=== PATIENT | male | born 1955 | race Hispanic/Latino ===

== ENCOUNTER → 2019-07-16 | Day surgery (SDC) | payer MEDICARE ==
[2019-07-10 13:23] LABS: BASOPHILS % 0.4 % (0.0-1.0); EOSINOPHILS % 0.1 % (0.0-6.0); HEMATOCRIT 44.3 % (38.2-49.6); HEMOGLOBIN 14.8 g/dL (14.0-18.0); LYMPHOCYTES # (AUTO) 1.1 (1.0-3.2); MEAN CORPUSCULAR HEMOGLOBIN 33.2 pg (28-32); MEAN CORPUSCULAR HGB CONC 33.4 g/dL (31-35); MEAN CORPUSCULAR VOLUME 99.3 fL (81-99); MONOCYTES # (AUTO) 0.9 (0.2-0.8); MONOCYTES % 11.3 % (4.4-11.3); NEUTROPHILS # (AUTO) 5.6 (2.1-6.9); NEUTROPHILS % 73.9 % (38.7-80.0); PLATELET COUNT 178 x10e3/uL (140-360); RED BLOOD COUNT 4.46 x10e6/uL (4.3-5.7); RED CELL DISTRIBUTION WIDTH 13.2 % (11.7-14.4)
[~2019-07-16] MED LIST: ATORVASTATIN CA20 MG PO; CARVEDILOL3.125 MG PO; DIOVAN80 MG PO; ELIQUIS5 MG PO; FENTANYL CITRATE/PF 100MCG/2 ML INJ ONE; FUROSEMIDE40 MG PO; LEVOTHYROXINE50 MCG PO; MIDAZOLAM HCL 2 MG/2 ML VIAL ONE; POTASSIUM CHLO20 ME1 PO; PROPOFOL IV EMULSION 10 MG/ML 50 ML VIAL ONE; SYMBICORT 16010.2 GM INH; TYLENOL # 31 EA PO; ZOLPIDEM TARTRA10 MG PO
--- OUTSIDE RECORDS SUMMARY | 2019-07-16 06:54 | XMS REPORT ---
Author Organization Unknown Address [address] [place] [address] Phone [phone] Care Team Providers Care Pv Design Engineer Name Role Phone CATIA HUTCHINS MD 82 [phone] ROBIN "NATI" CHRISTIANO TIDWELL 3 [phone] Allergies Code Code System Name Reaction Severity Status Onset NKDA Medications Name Status Start Date Stop Date acetaminophen 300 mg-codeine 30 mg tablet tanmay 1 o 2 tabletas por via oral cada 8 horas por annmarie necesaria dolor Active Not available Advair Diskus 500 mcg-50 mcg/dose powder for inhalation Completed 12/16/2016 albuterol sulfate 2.5 mg/3 mL (0.083 %) solution for nebulization Completed 10/09/2017 atorvastatin 40 mg tablet Take 1 tablet every day by oral route for 90 days. Completed 11/02/2017 bupropion HCl XL 150 mg 24 hr tablet, extended release Completed 10/26/2017 carvedilol 12.5 mg tablet Active Not available Depo-Medrol 80 mg/mL suspension for injection 1 ml injected deep IM, once, as a single dose Completed 10/09/2017 diclofenac 3 % topical gel aplicar 2 cm hacia area afectada y frotar, 4 veces cada ernesto Active Not available furosemide 20 mg tablet TAKE ONE TABLET BY MOUTH ONCE DAILY DIRECTED FOR 90 DAYS Active Not available furosemide 40 mg tablet tanmay 1 o 2 tabletas por via oral dos veces cada ernesto Active Not available hydrocodone 10 mg-acetaminophen 325 mg tablet Completed 11/02/2017 hydrocodone 7.5 mg-acetaminophen 325 mg tablet Completed 11/02/2017 levothyroxine 50 mcg tablet Active Not available levothyroxine 75 mcg tablet Completed 05/02/2017 methylprednisolone 4 mg tablets in a dose pack Completed 10/09/2017 minocycline 100 mg capsule Completed 08/25/2017 montelukast 10 mg tablet Take 1 tablet every day by oral route as directed for 90 days. Completed 10/26/2017 omeprazole 40 mg capsule,delayed release Take 1 capsule every day by oral route as directed for 90 days. Active Not available potassium chloride ER 20 mEq tablet,extended release tanmay 1 tableta por via oral lukasz cyndie blackman ernesto Active Not available Savaysa 60 mg tablet Take 1 tablet every day by oral route as directed for 90 days. Completed 10/26/2017 simvastatin 40 mg tablet Completed 08/25/2017 Symbicort 160 mcg-4.5 mcg/actuation HFA aerosol inhaler Active Not available tizanidine 4 mg tablet Completed 09/14/2017 tramadol 50 mg tablet Completed 09/14/2017 valacyclovir 1 gram tablet Completed 10/26/2017 valsartan 40 mg tablet Active Not available Problems Name Status Onset Date Source Hypothyroidism Active 09/14/2016 Hypercholesterolemia Active 09/14/2016 Hypertensive Disorder Unknown 09/14/2016 Hypertensive Heart Failure Active 09/14/2016 Coronary Arteriosclerosis in [place] Artery Active 09/14/2016 Chronic Atrial Fibrillation Active 09/14/2016 Chronic Systolic Heart Failure Active 09/14/2016 Chronic Obstructive Lung Disease Active 09/14/2016 Gastroesophageal Reflux Disease Active 09/14/2016 Cardiac Pacemaker in Situ Active 09/14/2016 Generalized Anxiety Disorder Active 05/02/2017 Edema of Lower Extremity Active 11/02/2017 Compression Fracture of Lumbar Spine Active 11/02/2017 Procedures Date Name Performed by 07/14/2017 Pacemaker Notes: replacement sx Information not available 08/14/2001 Pacemaker Information not available 09/14/2016 Electrocardiogram [facility] [address] [place] [address] (Work Place) 10/26/2017 XR, Lumbosacral Spine, 2 or 3 View [facility] [address] [place] [address] (Work Place) Lab Results Date Name Specimen Result Interpretation Description Value Range Status Address 10/26/2017 BNP (B-type Natriuretic Peptide), Serum or Plasma Normal B Type Natriuretic Peptide (BNP) 95 pg/mL <100 pg/mL Final [facility]: [address] 10/26/2017 Lipid Panel, Serum Normal Cholesterol, Total 181 mg/dL <200 mg/dL Final [facility]: [address] [place] [address] Normal HDL Cholesterol 71 mg/dL >40 mg/dL Final [facility]: [address] Normal Triglycerides 82 mg/dL <150 mg/dL Final [facility]: [address] Normal LDL-cholesterol 93 mg/dL (calc) Final [facility]: [address] Normal Chol/hdlc Ratio 2.5 (calc) <5.0 (calc) Final [facility]: [address] Normal Non HDL Cholesterol 110 mg/dL (calc) <130 mg/dL (calc) Final [facility]: [address] 10/26/2017 CMP, Serum or Plasma High Glucose 101 mg/dL 65-99 mg/dL Final [facility]: [address] Normal Urea Nitrogen (BUN) 21 mg/dL 7-25 mg/dL Final [facility]: [address] Normal Creatinine 1.05 mg/dL 0.70-1.25 mg/dL Final [facility]: [address] Normal eGFR Non-afr. Citizen Of [place] 75 mL/min/1.73m2 > or=60 mL/min/1.73m2 Final [facility]: [address] Normal eGFR 87 mL/min/1.73m2 > or=60 mL/min/1.73m2 Final [facility]: [address] BUN/creatinine Ratio not applicable (calc) 6-22 (calc) Final [facility]: [address] Normal Sodium 144 mmol/L 135-146 mmol/L Final [facility]: [address] Normal Potassium 4.3 mmol/L 3.5-5.3 mmol/L Final [facility]: [address] Normal Chloride 101 mmol/L 98-110 mmol/L Final [facility]: [address] High Carbon Dioxide 37 mmol/L 20-31 mmol/L Final [facility]: [address] Normal Calcium 9.3 mg/dL 8.6-10.3 mg/dL Final [facility]: [address] [place] Normal Protein, Total 6.4 g/dL 6.1-8.1 g/dL Final [facility]: [address] [place] Normal Albumin 3.7 g/dL 3.6-5.1 g/dL Final [facility]: [address] [place] Normal Globulin 2.7 g/dL (calc) 1.9-3.7 g/dL (calc) Final [facility]: [address] [place] Normal Albumin/globulin Ratio 1.4 (calc) 1.0-2.5 (calc) Final [facility]: [address] [place] Normal Bilirubin, Total 1.0 mg/dL 0.2-1.2 mg/dL Final [facility]: [address] [place] High Alkaline Phosphatase 130 U/L 40-115 U/L Final [facility]: [address] [place] Normal Ast 16 U/L 10-35 U/L Final [facility] [address] [facility] Alt 19 U/L 9-46 U/L Final [facility]: [address] [place] 10/26/2017 Tech Slide Review Normal White Blood Cell Count 10.7 thousand/uL 3.8-10.8 thousand/uL Final [facility] [address] [facility] Red Blood Cell Count 4.34 million/uL 4.20-5.80 million/uL Final [facility] [address] [facility] Hemoglobin 14.6 g/dL 13.2-17.1 g/dL Final [facility]: [address] [place] Normal Hematocrit 43.7 % 38.5-50.0 % Final [facility]: [address] [place] High Mcv 100.7 fL 80.0-100.0 fL Final [facility]: [address] [place] High Mch 33.6 pg 27.0-33.0 pg Final [facility] [address] [facility] [facility] Mchc 33.4 g/dL 32.0-36.0 g/dL Final [facility]: [address] [place] Normal Rdw 12.6 % 11.0-15.0 % Final [facility]: [address] [place] Normal Platelet Count 202 thousand/uL 140-400 thousand/uL Final [facility]: [address] [facility] [place] Normal Mpv 11.6 fL 7.5-12.5 fL Final [facility]: [address] [place] High Absolute Neutrophils 8988 cells/uL 7770-7742 cells/uL Final [facility]: [address] [facility] [place] Normal Absolute Lymphocytes 1284 cells/uL 850-3900 cells/uL Final [facility]: [address] [place] [address] Normal Absolute Monocytes 428 cells/uL 200-950 cells/uL Final [facility]: [address] [place] [address] Low Absolute Eosinophils 0 cells/uL 15-500 cells/uL Final [facility]: [address] [place] [address] Normal Absolute Basophils 0 cells/uL 0-200 cells/uL Final [facility]: [address] Normal Neutrophils 84 % Final [facility]: [address] [facility] [place] Normal Lymphocytes 12 % Final [facility]: [address] Normal Monocytes 4 % Final [facility]: [address] Normal Eosinophils 0 % Final [facility]: [address] Normal Basophils 0 % Final [facility]: [address] Comment(s) Final [facility]: [address] 05/02/2017 BNP (B-type Natriuretic Peptide), Serum or Plasma Normal B Type Natriuretic Peptide (BNP) 60 pg/mL <100 pg/mL Final [facility]: [address] 05/02/2017 TSH, Serum or Plasma Normal Tsh 3.41 mIU/L 0.40-4.50 mIU/L Final [facility]: [address] 05/02/2017 T4, Total, Serum Normal T4 (Thyroxine), Total 7.9 mcg/dL 4.5-12.0 mcg/dL Final [facility] [address] [facility] [facility] 05/02/2017 CMP, Serum or Plasma Normal Glucose 81 mg/dL 65-99 mg/dL Final [facility]: [address] Normal Urea Nitrogen (BUN) 18 mg/dL 7-25 mg/dL Final [facility]: [address] Normal Creatinine 1.15 mg/dL 0.70-1.25 mg/dL Final [facility]: [address] Normal eGFR Non-afr. Citizen [place] 67 mL/min/1.73m2 > or=60 mL/min/1.73m2 Final [facility]: [address] Normal eGFR 78 mL/min/1.73m2 > or=60 mL/min/1.73m2 Final [facility]: [address] BUN/creatinine Ratio not applicable (calc) 6-22 (calc) Final [facility]: [address] Normal Sodium 142 mmol/L 135-146 mmol/L Final [facility]: [address] Normal Potassium 3.8 mmol/L 3.5-5.3 mmol/L Final [facility]: [address] Normal Chloride 104 mmol/L 98-110 mmol/L Final [facility]: [address] Normal Carbon Dioxide 28 mmol/L 20-31 mmol/L Final [facility]: [address] Normal Calcium 8.8 mg/dL 8.6-10.3 mg/dL Final [facility]: [address] Normal Protein, Total 6.2 g/dL 6.1-8.1 g/dL Final [facility]: [address] Normal Albumin 3.8 g/dL 3.6-5.1 g/dL Final [facility]: [address] Normal Globulin 2.4 g/dL (calc) 1.9-3.7 g/dL (calc) Final [facility]: [address] [place] Normal Albumin/globulin Ratio 1.6 (calc) 1.0-2.5 (calc) Final [facility]: [address] High Bilirubin, Total 1.3 mg/dL 0.2-1.2 mg/dL Final [facility]: [address] [place] Normal Alkaline Phosphatase 73 U/L 40-115 U/L Final [facility]: [address] [place] Normal Ast 20 U/L 10-35 U/L Final [facility]: [address] [place] Normal Alt 31 U/L 9-46 U/L Final [facility]: [address] Butler 05/02/2017 Tech Slide Review Normal White Blood Cell Count 8.6 thousand/uL 3.8-10.8 thousand/uL Final [facility]: [address] [place] Normal Red Blood Cell Count 4.99 million/uL 4.20-5.80 million/uL Final [facility]: [address] [place] Normal Hemoglobin 16.5 g/dL 13.2-17.1 g/dL Final [facility]: [address] [place] Normal Hematocrit 49.0 % 38.5-50.0 % Final [facility]: [address] [place] Normal Mcv 98.2 fL 80.0-100.0 fL Final [facility]: [address] High Mch 33.1 pg 27.0-33.0 pg Final [facility]: [address] [place] Normal Mchc 33.7 g/dL 32.0-36.0 g/dL Final [facility]: [address] [place] Normal Rdw 12.1 % 11.0-15.0 % Final [facility]: [address] [place] Normal Platelet Count 174 thousand/uL 140-400 thousand/uL Final [facility]: [address] [place] Normal Mpv 11.7 fL 7.5-12.5 fL Final [facility]: [address], [place] Normal Absolute Neutrophils 4902 cells/uL 6708-1388 cells/uL Final [facility]: [address] [place] Normal Absolute Lymphocytes 2150 cells/uL 850-3900 cells/uL Final [facility]: [address] [place] High Absolute Monocytes 1204 cells/uL 200-950 cells/uL Final [facility]: [address] [place] Normal Absolute Eosinophils 344 cells/uL 15-500 cells/uL Final [facility]: [address] [place] Normal Absolute Basophils 0 cells/uL 0-200 cells/uL Final [facility]: [address] [place] Normal Neutrophils 57 % Final [facility]: [address] [place] Normal Lymphocytes 25 % Final [facility]: [address] [place] Normal Monocytes 14 % Final [facility]: [address] [facility] [place] Normal Eosinophils 4 % Final [facility]: [address] [facility] [place] Normal Basophils 0 % Final [facility]: [address] Comment(s) <enter> Final [facility] [address] [facility] 05/[facility]/2017 Lipid Panel, Serum High Cholesterol, Total 216 mg/dL <200 mg/dL Final [facility]: [address] [place] [address] Normal HDL Cholesterol 68 mg/dL >40 mg/dL Final [facility]: [address] [place] [address] Normal Triglycerides 140 mg/dL <150 mg/dL Final [facility]: [address] [place] [address] High LDL-cholesterol 123 mg/dL (calc) Final [facility]: [address] Normal Chol/hdlc Ratio 3.2 (calc) <5.0 (calc) Final [facility]: [address] [place] [address] High Non HDL Cholesterol 148 mg/dL (calc) <130 mg/dL (calc) Final [facility] [address] [facility] 09/[facility]2016 Lipid Panel, Serum High Cholesterol, Total 215 mg/dL 125- 200 mg/dL Final [facility]: [address] [facility], [place] Normal HDL Cholesterol 72 mg/dL > or=40 mg/dL Final [facility]: [address], [place] Normal Triglycerides 105 mg/dL <150 mg/dL Final [facility]: [address], [place] Normal LDL-cholesterol 122 mg/dL (calc) <130 mg/dL (calc) Final [facility]: [address], [place] Normal Chol/hdlc Ratio 3.0 (calc) < or=5.0 (calc) Final [facility]: [address] [facility], [place] Normal Non HDL Cholesterol 143 mg/dL (calc) Final [facility]: [address] [facility], [place] 09/14/2016 CMP, Serum or Plasma Normal Glucose 90 mg/dL 65-99 mg/dL Final [facility]: [address] [facility], [place] Normal Urea Nitrogen (BUN) 17 mg/dL 7-25 mg/dL Final [facility]: [address] [facility], [place] Normal Creatinine 1.07 mg/dL 0.70-1.25 mg/dL Final [facility]: [address] [facility], [place] Normal eGFR Non-afr. Citizen [place] 73 mL/min/1.73m2 > or=60 mL/min/1.73m2 Final [facility]: [address] [facility], [place] Normal eGFR 85 mL/min/1.73m2 > or=60 mL/min/1.73m2 Final [facility]: [address] [facility], [place] BUN/creatinine Ratio not applicable (calc) 6-22 (calc) Final [facility]: [address] [facility], [place] Normal Sodium 143 mmol/L 135-146 mmol/L Final [facility]: [address] [facility], [place] Normal Potassium 4.0 mmol/L 3.5-5.3 mmol/L Final [facility]: [address] [facility], [place] Normal Chloride 105 mmol/L 98-110 mmol/L Final [facility]: [address] [facility], [place] Normal Carbon Dioxide 30 mmol/L 20-31 mmol/L Final [facility]: [address], [place] Normal Calcium 9.1 mg/dL 8.6-10.3 mg/dL Final [facility]: [address], [place] Normal Protein, Total 6.3 g/dL 6.1-8.1 g/dL Final [facility]: [address], [place] Normal Albumin 4.0 g/dL 3.6-5.1 g/dL Final [facility]: [address], [place] Normal Globulin 2.3 g/dL (calc) 1.9-3.7 g/dL (calc) Final [facility]: [address], [place] Normal Albumin/globulin Ratio 1.7 (calc) 1.0-2.5 (calc) Final [facility]: [address], [place] High Bilirubin, Total 1.5 mg/dL 0.2-1.2 mg/dL Final [facility]: [address], [place] Normal Alkaline Phosphatase 67 U/L 40-115 U/L Final [facility]: [address], [place] Normal Ast 17 U/L 10-35 U/L Final [facility]: [address], [place] Normal Alt 30 U/L 9-46 U/L [facility]: [address], [place] 09/14/2016 CBC W/ Auto Diff Normal White Blood Cell Count 9.4 thousand/uL 3.8-10.8 thousand/uL Final [facility]: [address], [place] Normal Red Blood Cell Count 4.93 million/uL 4.20-5.80 million/uL [facility]: [address], [place] Normal Hemoglobin 16.2 g/dL 13.2-17.1 g/dL Final [facility]: [address], [place] Normal Hematocrit 49.0 % 38.5-50.0 % [facility]: [address], [place] Normal Mcv 99.4 fL 80.0-100.0 fL Final [facility] [address] [facility] [place] Normal Mch 32.9 pg 27.0-33.0 pg Final [facility] [address] [facility] [place] Normal Mchc 33.1 g/dL 32.0-36.0 g/dL Final [facility] [address] [facility] [place] Normal Rdw 13.9 % 11.0-15.0 % [facility]: [address], [place] Normal Platelet Count 162 thousand/uL 140-400 thousand/uL Final [facility] [address] [facility] [place] Normal Mpv 10.5 fL 7.5-12.5 fL Final [facility]: [address] [facility] [place] Normal Absolute Neutrophils 6561 cells/uL 5648-5178 cells/uL Final [facility]: [address] [facility] [place] Normal Absolute Lymphocytes 1955 cells/uL 850-3900 cells/uL Final [facility]: [address] [facility], [place] Normal Absolute Monocytes 808 cells/uL 200-950 cells/uL Final [facility]: [address] [place] [address], [place] Normal Absolute Eosinophils 66 cells/uL 15-500 cells/uL Final [facility]: [address] [facility], [place] Normal Absolute Basophils 9 cells/uL 0-200 cells/uL Final [facility]: [address] [facility] [place] Normal Neutrophils 69.8 % [facility]: [address] [facility], [place] Normal Lymphocytes 20.8 % [facility]: [address] [place] [address], [place] Normal Monocytes 8.6 % [facility]: [address] [place], [place] [address]vd, [place] Normal Eosinophils 0.7 % [facility]: [address] [place] [address], [place] Normal Basophils 0.1 % [facility]: [address] [place] [address], [place] 09/14/2016 T4, Total, Serum High T4 (Thyroxine), Total 13.7 mcg/dL 4.5-12.0 mcg/dL Final [facility]: [address] [facility], [place] 09/14/2016 TSH, Serum or Plasma Low Tsh 0.14 mIU/L 0.40-4.50 mIU/L Final [facility]: [address] [facility], [place] 09/14/2016 PSA, Serum or Plasma Normal PSA, Total 1.0 NG/mL < or=4.0 NG/mL Final [facility] [address] [facility] Albumin:creatinine Ratio, Urine Type Urine Microlalbumin 30 mg/L [facility]: [address], [place] Type Urine Creatinine 300 mg/dL [facility]: [address] [address], [place] Type A:C Ratio <30 mg/g (Normal) [facility]: [address], [place] Spirometry Spirometry [facility]: [address] [address], [place] Electrocardiogram Rate & Rhythm [facility]: [address] [address], [place] Qrs [facility]: [address] [address], [place] ID Interval [facility]: [address] [address], [place] QRS Duration [facility]: [address] [address], [place] QT Interval [facility]: [address] [address], [place] Past Encounters 11/02/2017 Edema of Lower Extremity; Compression Fracture of Lumbar Spine; Hypertensive Heart Failure; Chronic Atrial Fibrillation; Chronic Systolic Heart Failure; Cardiac Pacemaker in Situ Robin Rubio MD: [address] [address], Ph. 10/30/2017 Cindy Jimenez: [address] [address], Ph. 10/26/2017 Hypertensive Heart Failure; Gastroesophageal Reflux Disease; Acute Low Back Pain; Hypercholesterolemia Robin Rubio MD: [address] [facility], [address] [address], Ph. 10/09/2017 Body Mass Index 30+ - Obesity; Herpes Zoster August Louise MD: [address] [place] [address], Ph. 09/14/2017 Body Mass Index 30+ - Obesity; Osteoarthritis of Hip; Hip Pain; Coronary Arteriosclerosis in [place] Artery; Hypertensive Heart Failure; Chronic Atrial Fibrillation; Chronic Systolic Heart Failure; Cardiac Pacemaker in Situ; Chronic Obstructive Lung Disease; Hypercholesterolemia; Long-term Current Use of Antiplatelet Drug Robin Rubio MD: [address] [facility], [address], [place] [address], Ph. 08/25/2017 Morbid Obesity; Generalized Anxiety Disorder; Chronic Obstructive Lung Disease; Gastroesophageal Reflux Disease; Chronic Atrial Fibrillation; Hypertensive Heart Failure; Hypercholesterolemia; Hypothyroidism; Low Back Pain Leslie Sathish [employer]STRU[employer]URE TECH: [address], [address], [place] [address], Ph. 05/02/2017 Hypertensive Heart Failure; Hypercholesterolemia; Gastroesophageal Reflux Disease; Hypothyroidism; Chronic Obstructive Lung Disease; Generalized Anxiety Disorder; Immunization Robin Rubio MD: [address] [facility] [address], [address], [place] [address], Ph. 12/16/2016 Hypertensive Heart Failure; Chronic Atrial Fibrillation; Gastroesophageal Reflux Disease; Chronic Obstructive Lung Disease; Hypothyroidism; Immunization Robin Rubio MD: [address] [facility], [address] [address], Ph. 09/14/2016 Adult Health Examination; Hypertensive Heart Failure; Chronic Atrial Fibrillation; Chronic Systolic Heart Failure; Hypercholesterolemia; Gastroesophageal Reflux Disease; Hypothyroidism; Coronary Arteriosclerosis in [place] Artery; Advance Directive Discussed with Patient; Chronic Obstructive Lung Disease; Body Mass Index 30+ - Obesity; Screening for Malignant Neoplasm of Prostate; Screening for Malignant Neoplasm of Colon; Immunization Robin Rubio MD: [id number] [facility], [address], [place] [address], Ph. Social History Smoking Status Never Smoker Vaccine List Vaccine Type Influenza, injectable, MDCK, quadrivalent 05/02/20170.5 mL influenza, injectable, quadrivalent 09/14/20160.5 mL Tdap 12/16/20160.5 mL Notes: decline's all vaccine's -10/09/2017-preethi Plan of Care Patient Instructions apply calamine to rash rtc 1week,prn pain meds It was good to see you in the office today for your Medicare Annual Wellness Visit. You have been provided some information on healthy nutrition, including a diet rich in fruits and vegetables, minimizing simple carbohydrates, salt, and saturated fats. I want to encourage regular cardiovascular exercise such as walking at least 30 minutes daily, 5 times per week. Please remember to schedule any preventive health measures that we talked about today. You have also been provided education on fall prevention and community- based lifestyle interventions to help reduce health risks and promote healthy living in your [employer] folder. Reminders Provider Appointments None recorded. Lab None recorded. Referral None recorded. Procedures None recorded. Surgeries None recorded. Imaging None recorded. Vitals 11/02/2017 08:30AM Est Patient Height Weight BMI Blood Pressure 5 ft 7 in 220.2 lbs 34.5 kg/m2 (1) 142/87 mm[Hg] (2) 140/88 mm[Hg] 10/26/2017 09:30AM Est Patient Height Weight BMI Blood Pressure 5 ft 7 in 227 lbs 35.6 kg/m2 135/92 mm[Hg] 10/09/2017 03:45PM Est Patient Height Weight BMI Blood Pressure 5 ft 7 in 225 lbs 35.2 kg/m2 120/76 mm[Hg] 09/14/2017 03:15PM Est Patient Height Weight BMI Blood Pressure 5 ft 7 in 221.2 lbs 34.6 kg/m2 152/90 mm[Hg] 08/25/2017 09:15AM Est Patient Height Weight BMI Blood Pressure 5 ft 7 in 226 lbs 35.4 kg/m2 129/84 mm[Hg] 05/02/2017 09:15AM Est Patient Height Weight BMI Blood Pressure 5 ft 7 in 217 lbs 34 kg/m2 (1) 166/110 mm[Hg] (2) 159/94 mm[Hg] 12/16/2016 10:15AM Est Patient Height Weight BMI Blood Pressure 5 ft 7 in 214.6 lbs 33.6 kg/m2 128/86 mm[Hg] 09/14/2016 11:00AM ACCOUNTING OFFICE MANAGER/EST CPX Height Weight BMI Blood Pressure 5 ft 7 in 214.8 lbs 33.6 kg/m2 161/96 mm[Hg]
[2019-07-16 09:50] VITALS: BP 132/71
== END | disposition home or self-care (01) ==
LOC: OR 06:45
PROVIDERS: ATTEND Internal Medicine Gastroenterology
DX: Z12.11 Encounter for screening for malignant neoplasm of colon (principal); K59.00 Constipation, unspecified; K57.30 Diverticulosis of large intestine without perforation or abscess without bleeding; K64.8 Other hemorrhoids; I25.10 Atherosclerotic heart disease of native coronary artery without angina pectoris; J45.909 Unspecified asthma, uncomplicated; I10 Essential (primary) hypertension; I49.5 Sick sinus syndrome; E03.9 Hypothyroidism, unspecified; E78.5 Hyperlipidemia, unspecified; G47.00 Insomnia, unspecified; Z79.02 Long term (current) use of antithrombotics/antiplatelets; Z68.31 Body mass index [BMI] 31.0-31.9, adult; Z86.718 Personal history of other venous thrombosis and embolism; Z86.73 Personal history of transient ischemic attack (TIA), and cerebral infarction without residual deficits; Z95.810 Presence of automatic (implantable) cardiac defibrillator
CPT/HCPCS: 36415; 85025; 93005; G0121; J2250; J2704; J3010; 45378